=== PATIENT | male | born 1950 | race Caucasian/White ===

== ENCOUNTER 2021-10-09 08:41 | Outpatient (CLI) | payer OTHER, MEDICARE ==
[2021-10-09] MEDS ORDERED: Iopamidol 300 61% 100 ML VIAL FS ONE (09:28)
== END 2021-10-09 08:42 | disposition home or self-care (01) ==
LOC: CSHCT 08:41
PROVIDERS: ATTEND Internal Medicine Hematology & Oncology
DX: C21.0 Malignant neoplasm of anus, unspecified (principal); R91.8 Other nonspecific abnormal finding of lung field; E04.1 Nontoxic single thyroid nodule; K57.30 Diverticulosis of large intestine without perforation or abscess without bleeding; N28.1 Cyst of kidney, acquired; K76.9 Liver disease, unspecified
CPT/HCPCS: 71260; 74177